=== PATIENT | female | born 1965 | race Caucasian/White ===

== ENCOUNTER → 2017-10-31 03:07 | Outpatient (CLI) | payer MEDICARE, SELFPAY ==
--- NOTE | 2017-10-31 09:31 | DI.REPORT_ITS ---
SYMPTOM/DIAGNOSIS: RUQ PAIN R10.11 ABDOMEN ULTRASOUND: Comparison is made with [address] of the abdomen and pelvis from 2007 [address] did not demonstrate the 4.5 cm lesion at the inferior right lobe. The liver shows a coarsened echo texture. No surface nodularity or focal mass is identified. The findings could indicate patchy fatty infiltration. There is no biliary dilatation. The patient is status post cholecystectomy. The spleen is normal in size The kidneys, pancreas and aorta are unremarkable. There is no ascites. IMPRESSION: Coarse liver echo texture. No focal liver lesion is identified.
[2017-10-31 10:56] LABS: HCT 44.9 % (36.0-46.0); HGB 15.2 g/dL (12.0-15.5); Mean Corp. HGB Concentration 33.9 g/dL (32.0-36.0); Mean Corpuscular Hemoglobin 28.1 pg (27.0-33.0); Mean Corpuscular Volume 83.1 fL (80-95); Platelet Count 193 x1000/uL (130-400); RBC Distribution Width 12.6 % (11.7-14.6); White Blood Cell Count 6.43 k/cumm (4.4-10.8)
[2017-10-31 12:06] LABS: Iron 127 ug/dL (50-175)
[2017-10-31 12:17] LABS: ALT 100 U/L (12-78); AST 109 U/L (15-37); Albumin 3.4 g/dL (3.4-5.0); Alkaline Phosphatase 149 U/L (46-116); Anion Gap 7.5 mmol/L (3-11); BUN 19 mg/dL (7-18); CO2 29.5 mmol/L (21.0-32.0); CREATININE 0.99 mg/dL (0.55-1.02); Chloride 105 mmol/L (98-107); Glucose 77 mg/dL (70-100); Potassium 4.2 mmol/L (3.5-5.1); Sodium 142 mmol/L (136-145); TSH (W/Ref FT4) 10.38 uIU/mL (0.358-3.74); Total Protein 6.6 g/dL (6.4-8.2)
[2017-10-31 12:34] LABS: FREE T4 1.01 ng/dL (0.76-1.46)
[2017-10-31 16:01] LABS: Ferritin 98 ng/mL (8-388)
== END ==
PROVIDERS: PCP Family Medicine; Visit Provider Family Medicine
DX: R10.11 Right upper quadrant pain (principal); K76.0 Fatty (change of) liver, not elsewhere classified; E55.9 Vitamin D deficiency, unspecified; F41.9 Anxiety disorder, unspecified; G89.4 Chronic pain syndrome; D72.829 Elevated white blood cell count, unspecified; R71.8 Other abnormality of red blood cells
CPT/HCPCS: 76700; 36415; 80053; 82306; 85027; 82728; 83540; 84439; 84443

== ENCOUNTER 2019-01-21 11:38 | Outpatient (CLI) | payer MEDICARE, MEDICAID, SELFPAY ==
[2019-01-21 12:51] LABS: Abs Immature Grans 0.02 k/cumm (0.0-0.09); Absolute Basophil Count 0.04 k/cumm (0.0-0.2); Absolute Eosinophil Count 0.17 k/cumm (0.0-0.7); Absolute Lymphocyte Count 2.31 k/cumm (1.2-3.4); Absolute Monocyte Count 0.54 k/cumm (0.11-0.7); Absolute Neutrophil Count 3.71 k/cumm (1.2-6.7); Basophils % 0.6; Eosinophils % 2.5; HGB 14.5 g/dL (12.0-15.5); Immature Grans % 0.3; Mean Corp. HGB Concentration 32.2 g/dL (32.0-36.0); Mean Corpuscular Hemoglobin 28.5 pg (27.0-33.0); Mean Corpuscular Volume 88.6 fL (80-95); Mean Platelet Volume 11.4 fL (8.0-11.0); Neutrophils % 54.6; Platelet Count 224 x1000/uL (130-400); RBC 5.08 m/cumm (4.00-5.20); RBC Distribution Width 13.1 % (11.7-14.6); White Blood Cell Count 6.79 k/cumm (4.4-10.8)
[2019-01-21 13:16] LABS: ALT 34 U/L (14-59); AST 28 U/L (15-37); Albumin 2.9 g/dL (3.4-5.0); Alkaline Phosphatase 99 U/L (46-116); Anion Gap 5.5 mmol/L (3-11); BUN 24 mg/dL (7-18); Bilirubin, Total 0.4 mg/dL (0.2-1.0); CO2 31.5 mmol/L (21.0-32.0); CREATININE 0.95 mg/dL (0.55-1.02); Calculated LDL 109 mg/dL; Chloride 107 mmol/L (98-107); Cholesterol 187 mg/dL (50-200); Glucose 89 mg/dL (70-100); HDL Cholesterol 46 mg/dL (40-60); Potassium 3.9 mmol/L (3.5-5.1); Sodium 144 mmol/L (136-145); TSH (W/Ref FT4) 6.81 uIU/mL (0.36-3.74); Total Protein 5.9 g/dL (6.4-8.2); Triglyceride 160 mg/dL (30-150)
[2019-01-21 13:38] LABS: FREE T4 0.85 ng/dL (0.76-1.46)
== END 2019-01-21 11:58 ==
PROVIDERS: PCP Family Medicine; Visit Provider Family Medicine
DX: G43.109 Migraine with aura, not intractable, without status migrainosus (principal); M32.9 Systemic lupus erythematosus, unspecified; M79.7 Fibromyalgia; R41.3 Other amnesia; R74.8 Abnormal levels of other serum enzymes; F41.9 Anxiety disorder, unspecified; K58.9 Irritable bowel syndrome, unspecified
CPT/HCPCS: 36415; 80053; 80061; 83735; 84439; 84443; 85025

== ENCOUNTER 2019-05-03 22:34 | Outpatient (REF) | payer MEDICARE, SELFPAY ==
[2019-05-03 20:48] LABS: *AMPHETAMINES SCREEN URINE Negative (Negative); *BARBITURATES SCREEN URINE Negative (Negative); *BENZODIAZEPINES SCREEN URINE Negative (Negative); Cannabinoids THC POSITIVE (Negative); Cocaine Screen,Urine Negative (Negative); METHADONE URINE SCREEN Negative (Negative); OPIATES URINE SCREEN POSITIVE (Negative)
[2019-05-03 21:11] LABS: Tricyclic Antidepressants POSITIVE (Negative)
== END 2019-05-03 22:54 ==
LOC: LBN 22:34
PROVIDERS: PCP Family Medicine; Visit Provider Family Medicine
DX: G89.29 Other chronic pain (principal); Z79.891 Long term (current) use of opiate analgesic
CPT/HCPCS: 80307

== ENCOUNTER 2020-08-10 21:01 | Outpatient (REF) | payer MEDICARE, SELFPAY ==
[2020-08-10 21:09] LABS: HCT 50.4 % (36.0-46.0); HGB 16.4 g/dL (11.2-15.7); MCH 28.7 pg (27.0-33.0); MCHC 32.5 % (32.0-36.0); MCV 88.1 fL (80-95); MPV 12.6 fL (8.0-11.0); Platelet Count 220 10^3/uL (130-400); RBC 5.72 10^6/uL (3.93-5.22); RDW 12.5 % (11.7-14.6); RDW-SD 40.6 fL; WBC 5.43 10^3/uL (4.4-10.8)
[2020-08-10 21:54] LABS: Vitamin D 25 Total 31.2 ng/mL (30-100)
[2020-08-10 21:58] LABS: ALT 77 U/L (14-59); AST 47 U/L (15-37); Albumin 3.5 g/dL (3.4-5.0); Alkaline Phosphatase 178 U/L (46-116); Anion Gap 9.5 mmol/L (3-11); BUN 14 mg/dL (7-18); Bilirubin, Total 0.7 mg/dL (0.2-1.0); CO2 28.5 mmol/L (21.0-32.0); Chloride 106 mmol/L (98-107); Estimated GFR 57.56 (mL/min/1.73m2); Glucose 83 mg/dL (74-106); Potassium 4.4 mmol/L (3.5-5.1); Sodium 144 mmol/L (136-145); TSH (W/Ref FT4) 2.37 uIU/mL (0.36-3.74); Total Protein 6.3 g/dL (6.4-8.2)
[2020-08-11 12:01] LABS: Iron 70 ug/dL (50-170)
[2020-08-11 12:14] LABS: Ferritin 138 ng/mL (8-252)
[2020-08-15 15:40] LABS: ANA Interpretation Positive (Negative); ANA Titer Pattern 1:80 Homogeneous
== END 2020-08-10 21:02 | disposition home or self-care (01) ==
LOC: LBN 21:01
PROVIDERS: PCP Family Medicine; Visit Provider Family Medicine
DX: D58.2 Other hemoglobinopathies (principal); E55.9 Vitamin D deficiency, unspecified; F32.9 Major depressive disorder, single episode, unspecified; M79.7 Fibromyalgia; R93.2 Abnormal findings on diagnostic imaging of liver and biliary tract; R74.8 Abnormal levels of other serum enzymes; M32.9 Systemic lupus erythematosus, unspecified
CPT/HCPCS: 80053; 82306; 85027; 82728; 83540; 84443; 86038